=== PATIENT | female | born 1990 | race African-American/Black ===

== ENCOUNTER 2017-06-03 01:08 | Emergency (ER) | payer OTHER ==
[~2017-06-03] VITALS: Ht 165.1 cm; Wt 63.5 kg
[2017-06-03] MEDS ORDERED: TRAMADOL 50 MG50 MG PO (03:50)
[2017-06-03] MEDS ORDERED: FLAGYL500 MG PO (03:50)
[2017-06-03] MEDS ORDERED: DOXYCYCLINE 10100 MG PO (03:50)
[2017-06-03] MEDS ORDERED: ACETAMINOPHEN-1 EAC1 PO (04:45)
[2017-06-03 04:47] VITALS: BP 113/79
== END 2017-06-03 04:49 | disposition home or self-care (01) ==
LOC: ER 01:08
DX: N75.1 Abscess of Bartholin's gland (principal); Z88.2 Allergy status to sulfonamides

== ENCOUNTER 2017-09-14 16:11 | Emergency (ER) | payer OTHER ==
[~2017-09-14] VITALS: Ht 167.6 cm; Wt 67.1 kg
[~2017-09-14 16:11] MED LIST: ACETAMINOPHEN-1 EAC1 PO; DOXYCYCLINE 10100 MG PO; FLAGYL500 MG PO; TRAMADOL 50 MG50 MG PO
[2017-09-14 16:46] LABS: URINE BILIRUBIN NEGATIVE (Negative); URINE BLOOD NEGATIVE (Negative); URINE CLARITY CLEAR; URINE COLOR YELLOW; URINE GLUCOSE-RANDOM* NEGATIVE (Negative); URINE KETONES NEGATIVE (Negative); URINE LEUKOCYTES NEGATIVE (Negative); URINE NITRITE NEGATIVE (Negative); URINE PROTEIN (DIPSTICK) NEGATIVE (Negative); URINE SPECIFIC GRAVITY >= 1.030 (1.005-1.035); URINE UROBILINOGEN 0.2 E.U./dl (0.2-1.0)
== END 2017-09-14 18:20 | disposition home or self-care (01) ==
LOC: ER 16:11
PROVIDERS: Nurse Practitioner Family
DX: N89.8 Other specified noninflammatory disorders of vagina (principal); Z88.1 Allergy status to other antibiotic agents

== ENCOUNTER 2017-10-08 17:28 | Emergency (ER) | payer OTHER ==
[~2017-10-08] VITALS: Ht 167.6 cm; Wt 68.0 kg
[2017-10-08 18:28] LABS: ABSOLUTE NEUTROPHILS 7.3 thou/uL (1.4-8.2); BASOPHILS 0.4 % (0.0-2.0); EOSINOPHILS 1.1 % (0.0-3.0); HEMATOCRIT 40.9 % (37.0-47.0); HEMOGLOBIN 13.8 gm/dL (12.0-15.0); LYMPHOCYTES 23.1 % (24.0-44.0); MCH 30.7 pg (26.0-34.0); MCHC 33.8 g/dL (28.0-37.0); MCV 90.8 fL (80.0-100.0); MONOCYTES 5.4 % (1.0-8.0); PLATELET COUNT 221 thou/uL (150-400); RDW 13.1 % (10.5-14.5); WBC 10.4 thou/uL (4.0-11.0)
[2017-10-08 18:37] LABS: CALCIUM 9.4 mg/dL (8.5-10.1); CREATININE 0.7 mg/dL (0.6-1.0); POTASSIUM 4.2 mmol/L (3.5-5.1)
[2017-10-08 18:42] LABS: DIRECT BILIRUBIN 0.1 mg/dL (<0.1-0.3); TOTAL BILIRUBIN 0.6 mg/dL (<0.1-1.0); TOTAL PROTEIN 7.9 g/dL (6.4-8.2)
[2017-10-08] MEDS ORDERED: MOBIC15 MG PO (19:47)
[2017-10-08 20:00] VITALS: BP 108/73
== END 2017-10-08 20:01 | disposition home or self-care (01) ==
LOC: ER 17:28
PROVIDERS: Emergency Medicine
DX: S20.212A Contusion of left front wall of thorax, initial encounter (principal); R10.84 Generalized abdominal pain; Z88.1 Allergy status to other antibiotic agents; V89.2XXA Person injured in unspecified motor-vehicle accident, traffic, initial encounter; Y93.89 Activity, other specified; Y92.89 Other specified places as the place of occurrence of the external cause; Y99.8 Other external cause status

== ENCOUNTER 2018-01-16 15:43 | Emergency (ER) | payer OTHER ==
[~2018-01-16] VITALS: Ht 165.1 cm; Wt 67.1 kg
[~2018-01-16 15:43] MED LIST changes: +MOBIC15 MG PO
[2018-01-16 16:53] LABS: ABSOLUTE NEUTROPHILS 9.7 thou/uL (1.4-8.2); BASOPHILS 0.4 % (0.0-2.0); EOSINOPHILS 0.6 % (0.0-3.0); HEMATOCRIT 42.3 % (37.0-47.0); HEMOGLOBIN 14.3 gm/dL (12.0-15.0); LYMPHOCYTES 15.8 % (24.0-44.0); MCH 30.6 pg (26.0-34.0); MCHC 33.7 g/dL (28.0-37.0); MCV 90.7 fL (80.0-100.0); MONOCYTES 6.1 % (1.0-8.0); PLATELET COUNT 199 thou/uL (150-400); POLYS 77.1 % (36.0-66.0); RBC 4.66 mil/uL (4.20-5.00); RDW 13.1 % (10.5-14.5); WBC 12.6 thou/uL (4.0-11.0)
[2018-01-16 16:59] LABS: URINE BILIRUBIN NEGATIVE (Negative); URINE BLOOD NEGATIVE (Negative); URINE CLARITY CLEAR; URINE COLOR YELLOW; URINE GLUCOSE-RANDOM* NEGATIVE (Negative); URINE KETONES TRACE (Negative); URINE LEUKOCYTES-REFLEX NEGATIVE (Negative); URINE NITRITE-REFLEX NEGATIVE (Negative); URINE PROTEIN (DIPSTICK) TRACE (Negative); URINE SPECIFIC GRAVITY 1.025 (1.005-1.035); URINE UROBILINOGEN 0.2 E.U./dl (0.2-1.0)
[2018-01-16 17:01] LABS: CALCIUM 9.5 mg/dL (8.5-10.1); CREATININE 0.9 mg/dL (0.6-1.0); POTASSIUM 4.1 mmol/L (3.5-5.1)
[2018-01-16] MEDS ORDERED: DOXYCYCLINE 10100 MG PO (17:22)
[2018-01-16] MEDS ORDERED: NAPROSYN500 MG PO (17:22)
[2018-01-16 18:54] VITALS: BP 117/78
[2018-01-17 17:12] LABS: NEISSERIA GONORRHEA-PCR Negative (Negative)
== END 2018-01-16 18:54 | disposition home or self-care (01) ==
LOC: ER 15:43
PROVIDERS: Physician Assistant
DX: N73.9 Female pelvic inflammatory disease, unspecified (principal); R19.7 Diarrhea, unspecified; R35.0 Frequency of micturition; R20.2 Paresthesia of skin; F17.210 Nicotine dependence, cigarettes, uncomplicated; Z88.2 Allergy status to sulfonamides; Z88.8 Allergy status to other drugs, medicaments and biological substances